=== PATIENT | male | born 1965 | race Caucasian/White ===

== ENCOUNTER 2025-04-07 16:39 | Emergency (ER) | payer OTHER, SELFPAY ==
[2025-04-07 16:46] VITALS: BP 131/75
[2025-04-07 17:05] LABS: Hematocrit 36.3 % (39.0-52.0); Hemoglobin 12.5 g/dL (13.0-18.0); Mean Corp Hgb Conc. 34.4 g/dL (33.0-37.0); Mean Corpuscular Volume 90.3 fL (80.0-94.0); Nucleated Red Blood Cells % 0 % (-); Platelet Count 281 10^3/uL (130-400); Red Cell Dist. Width 13.2 % (11.5-14.5)
[2025-04-07 17:22] LABS: ALT (SGPT) 17 U/L (0-50); AST (SGOT) 24 U/L (17-59); Albumin 4.5 g/dl (3.5-5.0); Alkaline Phosphatase 65 U/L (38-126); Blood Urea Nitrogen 10 mg/dl (9-20); Calcium 9.3 mg/dl (8.4-10.2); Carbon Dioxide 22 mmol/L (22-30); Chloride 105 mmol/L (98-107); Glucose 95 mg/dl (70-99); Potassium 4.2 mmol/L (3.5-5.1); Sodium 133 mmol/L (135-145); Total Protein 7.5 g/dl (6.3-8.2); eGFR > 60.00
[2025-04-07 17:30] LABS: COVID-19 Antigen Negative (Negative)
--- NOTE | 2025-04-07 20:13 | ED.GENMED ---
History of Present Illness
General
Chief Complaint: Breathing Problem
Time Seen by Provider: 04/07/25 19:36
History of Present Illness
History of Present Illness:
59-year-old male with history of tobacco abuse presenting to the emergency department for persistent cough and shortness of breath. Patient notes that he was admitted at [facility] about a month ago for pneumonia. Was discharged on antibiotics. He
reports that he was not feeling better, went to urgent care, was again placed on antibiotics and steroids with minimal improvement. His symptoms have been persistent prompting him to come to the hospital. Does note chills and fever, last was last
evening. Denies associated chest pain. Does know mucus production. Denies blood in the sputum. Denies abdominal pain or GI symptoms. Denies additional acute medical complaints.
Past History
Past History
ED Past Medical History: GERD, Psychiatric (anxiety, depression, ), Other (colon Polyps, gastric ulcers, kidney stones, hepatitis C, Herniated Disc, pancreatitis, irritable bowel, substance abuse ( drug and alcohol). Prescription drug abuse. Alcohol
binge drinking.) and Other (Diverticulitis, GI bleeding, Hep C, IBS, Pancreatitis, Ulcers, Kidney stones )
ED Past Surgical History: Cholecystectomy, Orthopedic (Left shoulder Sx, ), Tonsilectomy, Urological (kidney stone) and Other (Hernia repair, Left orbital sx,)
Social History
Tobacco: Smoker
Alcohol: Daily (Fire ball 1 bottle)
Drug: Narcotics and Other (Benzodiazepine prescription drug abuse)
Personal: Single
Living: with roommate (Lives with Friend)
Employment: Not employed
Family History
Family History: Hypertension
Phy Exam
Physical Exam
Physical Exam:
General: Well-appearing, no clinical signs of dehydration, nontoxic and in no acute distress
HEENT: protecting airway
Neck: appears supple
CV: Normal heart rate, regular rhythm
Resp: No accessory muscle use, no increased work of breathing, rhonchorous breath sounds bilaterally
Abd: No distention, no erythema
Neuro: alert, no focal neurologic deficit
: deferred
Rectal: deferred
Psych: Normal affect
Skin: Intact
Scores
Heart Failure Risk
Heart Failure Risk Score: Not Applicable
Course
Orders/Labs/Results
Orders:
Orders
04/07/25 16:41
Electrocardiogram (*1) Urgent
Reason for Study: Chest Pain
EKG- Treatment ONCE
04/07/25 16:53
BNP [NT-proBNP] Urgent
CBC/With Diff [Complete Blood Count/With Diff] Urgent
CMP [Comprehensive Metabolic Panel] Urgent
COVID-19 Antigen Urgent
Source: Nasal Swab
Influenza A+B Rapid Molecular Urgent
MALKA Source: Nasal Swab
Specimen Description:
04/07/25 18:55
Chest [CR Chest - 2 Views ] Urgent
Comment:
Reason For Exam: shortness of breath
04/07/25 20:06
CT Chest PE Study Urgent
Comment:
Reason For Exam: cough and SOB for 1 month
04/07/25 20:19
Ipratropium/Albuterol Sulfate [Duoneb] 3 ml INH R NOW ONE
04/07/25 20:21
Nicotine [Nicoderm Transdermal] 21 mg TRANSDERM ONCE ONE
04/07/25 23:17
Prednisone [Deltasone] 60 mg PO NOW STA
Abnormal Lab Results
04/07/25
16:53
RBC 4.02 L 10^6/uL
(4.70-6.10)
Hgb 12.5 L g/dL
(13.0-18.0)
Hct 36.3 L %
(39.0-52.0)
MCH 31.1 H pg
(27.0-31.0)
Absolute Neuts (auto) 7.1 H 10^3/uL
(1.4-6.5)
Absolute Monos (auto) 0.9 H 10^3/uL
(0.1-0.6)
Lymphocytes % 19.9 L %
(20.5-51.1)
Sodium 133 L mmol/L
(135-145)
04/07/25 16:53
04/07/25 16:53
Vital Signs
Initial and Last Documented VS:
Initial Vital Signs
Temp Pulse Resp BP Pulse Ox
98.1 F 83 15 131/75 95
04/07/25 16:46 04/07/25 16:46 04/07/25 16:46 04/07/25 16:46 04/07/25 16:46
Last Documented Vital Signs
Temp Pulse Resp BP Pulse Ox
98.1 F 67 13 128/79 95
04/07/25 16:46 04/07/25 20:18 04/07/25 20:18 04/07/25 20:17 04/07/25 20:37
MDM/Problems Addressed
MDM/Problems Addressed:
59-year-old male with history of tobacco abuse presenting to the emergency department for cough and shortness of breath for about 3 weeks. Vital signs on arrival are normal
On exam patient is resting comfortably, no acute distress, active dry cough. Patient notes that when his symptoms started, was diagnosed with pneumonia. Notes that he has never felt improved. Possible failure of outpatient therapy. Patient
however is afebrile, nontoxic. Possible underlying COPD with exacerbation. Given tobacco abuse, possible underlying malignancy. Plan for laboratory analysis and chest x-ray imaging.
20:10 - Labs are relatively unremarkable and chest x-ray without obvious infiltrate. Given duration of symptoms and failure of improvement with appropriate therapies, will obtain CT chest for further assessment.
23:10 -CT without evidence of PE. There is emphysematous changes and evidence of pneumonitis of left lower lung field, which is where patient notes where his pneumonia was. No consolidation. Ultimately suspect that patient's symptoms are from
emphysema, and inflammation from recent pneumonia. No indication for repeat antibiotics. Patient ambulated, no desaturation. Ultimately feel stable for discharge. Advise follow-up with a supervisor operations. Patient has an appointment with his
primary care doctor tomorrow. Will restart patient on steroids. Patient has an inhaler at home. Return precautions discussed and patient verbalized understanding
*Pulse Oximetry
SaO2: 95
Oxygen Mode of Delivery: Room air
Patient hypoxic: no
*EKG
Interpreted by ED Provider?: Yes
EKG Intrepretation Date: 04/07/25
EKG Intrepretation Time: 20:17
Interpretation: normal
Comparison EKG: no changes (04/03/22)
Heart Rate: 82
Rate: normal
Rhythm: sinus
[place]: normal axis
Interval: normal interval
QRS Pattern: normal QRS
Ischemia: no ischemia
*Critical Care Note
Total Time (30-74mins, 75-104mins- exclusive of procedures): Not Applicable
ED Attending Note
-
Portions of this chart may have been created with voice recognition software.� Occasional wrong word or��sound alike� substitutions may have occurred due to the inherent limitations of voice recognition software.
Discharge Plan
Departure
Patient Disposition: Home (Routine Discharge)
Date of Disposition: 04/07/25
Time of Disposition: 23:19
Patient with high blood pressure during this ER visit?: No
Condition: Good
Discharge Problem:
Pneumonitis, Emphysema of lung
Instructions: Chronic obstructive pulmonary disease (COPD), Shortness of Breath (Dyspnea) (DC)
Prescriptions:
New
benzonatate 100 mg capsule
100 mg PO BID PRN (Reason: Cough) Qty: 10 0RF
prednisone 20 mg tablet
40 mg PO DAILY 5 Days Qty: 10 0RF
Referrals:
Gila Garay MD [Active, Pulmonary Medicine]
NONE,* [Family Provider, Internal Medicine]
Activity Restrictions/Additional Instructions:
You were seen in the emergency department for shortness of breath
You were found to have signs of emphysema and pneumonitis which is inflammation to the lungs. You were restarted on steroids. Please continue to use your inhaler
Please follow-up closely with your primary care physician tomorrow as scheduled, as well as a supervisor operations.
Return to the emergency department for any worsening of your symptoms, or any development of chest pain, difficulty breathing, abdominal pain with persistent vomiting and inability to tolerate food or liquid by mouth (concern for dehydration),
weakness, headache or confusion, fever greater than 100.4, or any additional symptoms that are concerning to you.
Thank you for choosing [facility].
Interventions
Interventions:
*Risk Screen - Suicide Last Done: 04/07/25 16:46
*General Assessment Last Done: 04/07/25 16:46
*Neglect/Abuse Screening Last Done: 04/07/25 16:46
*ED- Fall Risk Assessment Last Done: 04/07/25 23:52
*ED COVID-19 Vaccine History Last Done: 04/07/25 16:46
*ED Influenza Vaccine History Last Done: 04/07/25 16:46
*Nursing Disposition Last Done: 04/07/25 23:52
ED- Cardiac Assessment Last Done: 04/07/25 20:37
ED- Pulmonary Assessment Last Done: 04/07/25 20:37
Discharge Date and Time
Discharge Date/Time: 04/07/25 23:53
Print Language: [place]
[2025-04-07 20:17] VITALS: BP 128/79
[2025-04-07] MEDS: DUONEB 3 ML INH (20:30)
[2025-04-07] MEDS: NICODERM TRANSDERMAL 21 MG TRANSDERM (20:31)
[2025-04-07] MEDS: DELTASONE 60 MG PO (23:26)
== END 2025-04-07 23:53 | disposition home or self-care (01) ==
LOC: EMR 16:39
PROVIDERS: Emergency Medicine; EMERGENCY PHYSICIAN Student in an Organized Health Care Education/Training Program
DX: J98.4 Other disorders of lung (principal); J43.9 Emphysema, unspecified; F17.200 Nicotine dependence, unspecified, uncomplicated; Z11.52 Encounter for screening for COVID-19
CPT/HCPCS: 99285; 94640; 71046; 71275; 80053; 83880; 85025; 87502; 87811; 93005; Q9967